=== PATIENT | male | born 1995 | race Caucasian/White ===

== ENCOUNTER 2022-07-29 21:33 | Emergency (ER) | payer OTHER ==
[~2022-07-29] VITALS: Ht 182.9 cm; Wt 100.0 kg
[2022-07-29] MEDS ORDERED: LIDOCAINE 2% MDV 20ML VIAL SC ONE (22:25)
[2022-07-29] MEDS ORDERED: GABA-283 PO (22:28)
[2022-07-29] MEDS ORDERED: LISI5TAB11 PO (22:29)
[2022-07-29 23:01] VITALS: BP 176/79
== END 2022-07-30 02:14 | disposition home or self-care (01) ==
LOC: EDBD 21:33 → M ED 21:33
DX: S31.31XA Laceration without foreign body of scrotum and testes, initial encounter (principal); W22.8XXA Striking against or struck by other objects, initial encounter; I10 Essential (primary) hypertension; M54.30 Sciatica, unspecified side; Z79.899 Other long term (current) drug therapy